=== PATIENT | female | born 1995 | race Caucasian/White ===

== ENCOUNTER 2018-10-26 19:58 | Emergency (ER) | payer OTHER ==
--- NOTE | 2018-10-26 20:14 | EDPHY ---
H & P Time Seen by Provider: 10/26/18 20:11 HPI/ROS: Chief complaint. Possible stroke HPI. 22-year-old female presents with complaint of right eye twitching for several days. Today however she noticed facial asymmetry and that she could not close her eye completely. She has no headache. No change in her vision but sense of dry eye. She has had no recent travel. No tick bites. Does not have a history of herpes infection. No similar symptoms previously. No chest discomfort or trouble breathing. No abdominal pain. No weakness or change in sensation to arms or legs. She is walking fine. She has no sense of numbness to her tongue. ROS 10 systems were reviewed and negative with the exception of the elements mentioned in the history of present illness Past Medical/Surgical History: Healthy Social History: Single, nonsmoker, no alcohol Smoking Status: Never smoked Physical Exam: General Appearance: Alert pleasant well-developed female mild distress vital signs are stable Eyes: Pupils equal and round no pallor or injection. ENT, Mouth: Mucous membranes are moist. Respiratory: There are no retractions, lungs are clear to auscultation. Cardiovascular: Regular rate and rhythm. Gastrointestinal: Abdomen is soft and nontender, no masses, bowel sounds normal. Neurological: Awake and alert, sensory and motor exams grossly normal. Cranial nerves show a acute 7th nerve palsy with forehead involved to the right side of her face. There is no pronator drift. Speech is normal. Finger-to- nose and gait are normal Skin: Warm and dry, no rashes. Musculoskeletal: Neck is supple nontender. Extremities symmetrical, full range of motion. Psychiatric: Patient is oriented X 3, there is no agitation. Constitutional: Initial Vital Signs Temperature (C) 36.7 C 10/26/18 20:02 Heart Rate 76 10/26/18 20:02 Respiratory Rate 16 10/26/18 20:02 Blood Pressure 137/86 H 10/26/18 20:02 O2 Sat (%) 97 10/26/18 20:02 O2 Delivery Mode Room Air Allergies/Adverse Reactions: No Known Allergies Allergy (Unverified 10/26/18 20:02) Home Medications: Medication Instructions Recorded Triazolam [Halcion 0.25MG (*)] 0.25 mg PO HS PRN #10 tab 10/26/18 Valacyclovir HCl [Valtrex] 1,000 mg PO TID #21 tab 10/26/18 predniSONE 20 mg PO DAILY #27 tablet 10/26/18 Medical Decision Making Procedures: Prednisone and Valtrex in the ED ED Course/Re-evaluation: Patient and I discussed treatment plan including eye care. We discussed criteria for return importance of follow-up and further evaluation. She expresses understanding and agreement Differential Diagnosis: I considered central versus peripheral lesion. 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 Departure - Departure Disposition: Home, Routine, Self-Care Clinical Impression: Acosta's palsy Condition: Good Instructions: Acosta Palsy (ED) Additional Instructions: Prednisone at 60 mg daily for 5 days. Then you will decrease each day as written on your prescription. Valtrex 1 pill 3 times daily for the next week. Eye lubrication (lacrilube) and possible tape over your eye to keep closed at night while sleeping Halcion if needed to help you sleep Return for worsening symptoms Follow-up with Neurology in the next 2-3 days. Referrals: NONE *PRIMARY CARE P,. [Primary Care Provider] - As per Instructions Gerald Brady MD [Medical Doctor] - 2-3 days, call for appt. Prescriptions: predniSONE 20 mg PO DAILY #27 tablet Triazolam [Halcion 0.25MG (*)] 0.25 mg PO HS PRN #10 tab PRN Reason: Sleep/Insomnia Valacyclovir HCl [Valtrex] 1,000 mg PO TID #21 tab
[2018-10-26] MEDS ORDERED: predniSONE 20 MG TAB PO ONE (20:41)
[2018-10-26] MEDS ORDERED: valACYclovir 500 MG TAB PO ONE (20:41)
[2018-10-26 21:01] VITALS: BP 128/64
== END 2018-10-26 21:00 | disposition home or self-care (01) ==
DX: G51.0 Bell's palsy (principal)
CPT/HCPCS: J7512